=== PATIENT | male | born 1985 | race Caucasian/White ===

== ENCOUNTER 2021-12-17 20:07 | Emergency (ER) | payer BC, SELFPAY ==
[2021-12-17 20:23] VITALS: BP 135/78; PULSE 81; RESP 18; TEMP 36.1; O2SAT 98
--- NOTE | 2021-12-17 21:54 | ED.WOUNDLAC ---
HPI - Wound/Laceration General Chief Complaint: Wound/Laceration Stated Complaint: laceration to wrist Time Seen by Provider: 12/17/21 21:25 Source: RN notes reviewed History of Present Illness HPI narrative: Patient presents emergency department from home for laceration. Patient states that just prior to arrival he was pulling wiring out of the ceiling when a piece of metal that held up onto the tile is got jabbed into his right wrist states he had immediate bleeding at that time states he is unsure of his last tetanus shot he denies any numbness or tingling of his extremities states full range of motion of all of his fingers denies any other symptoms Related Data Home Medications Medication Instructions Recorded Confirmed No Home Medications 12/17/21 12/17/21 Allergies Allergy/AdvReac Type Severity Reaction Status Date / Time No Known Allergies Allergy Verified 12/17/21 20:25 Review of Systems Review of Systems: Gen.: Denies fevers or chills Musculoskeletal: Denies hand pain Neuro: Denies numbness, tingling, weakness Skin: See HPI Endo: Denies DM PMFSH Past Medical History Medical History (Updated 12/17/21 @ 21:57 by Homer Dillon DO) Patient denies significant medical history Social History Social History Smoking status: Never smoker Alcohol intake: current Exam Narrative: APPEARANCE: No acute distress, nontoxic, resting in bed Eyes: EOMI HEENT: Normocephalic, atraumatic, RESPIRATORY: No respiratory distress MUSCULOSKELETAl: Right hand with full range of motion of the wrist full flexion-extension of all 5 MCP and IP joints, radial pulse 2+ neurovascular intact NEURO: Awake and alert. Following commands, speech normal, no focal deficits SKIN:: Warm, dry. Normal mild venous bleeding no foreign body no tendon involvement seen 1 cm vertical laceration of the right midline wrist Course Course Emergency Course: Discussed with patient results of workup and diagnosis. Discussed need for follow-up with primary care, proper use of medication, and reasons to return to the emergency department. Patient understands and agrees to current treatment plan Vital Signs Vital signs: Vital Signs Temperature 97.0 F L 12/17/21 20:23 Pulse Rate 81 12/17/21 20:23 Respiratory Rate 18 12/17/21 20:23 Blood Pressure 135/78 12/17/21 20:23 Pulse Oximetry 98 12/17/21 20:23 Temperature 97.0 F L 12/17/21 20:23 Pulse Rate 81 12/17/21 20:23 Respiratory Rate 18 12/17/21 20:23 Blood Pressure 135/78 12/17/21 20:23 Pulse Oximetry 98 12/17/21 20:23 Procedures Laceration Laceration 1: ====== Skin Level ====== ====== Subcutaneous Layer ====== ====== Muscle Layer ====== ====== Tendon Layer ====== Dressin cm wrist laceration: Verbal consent was obtained prior to the procedure. The wound was cleaned with Betadine and irrigated with copious amounts of normal saline. Lidocaine 1% with epinephrine was used for anesthesia. Wound was explored is no foreign body seen. The wound was then closed with 2 3-0 nylon in simple interrupted fashion. A sterile dressing was applied following the procedure. Patient tolerated the procedure well Discharge Plan Discharge Clinical Impression: Laceration of wrist, right Patient Disposition: Home, Self-Care Condition: Stable Instructions: Antibiotic Form, Laceration (ED) Additional Instructions: Return for increasing pain bleeding from the wound signs of infection or any other symptoms or concern. your stitches need to be removed in 7-10 days and you may go to your physician or return to the emergency department for removal. Prescriptions: No Action No Home Medications RF: 0 Follow-up/Referrals: Grace,Yolanda Herrera APRN [Primary Care Provider] - 2 Days Time of Disposition: 21:57
[2021-12-17] MEDS: TETANUS,DIPHTHERIA,AC PERTUSSIS ADULT (0.5 ML) BOOSTRIX IM (22:07)
[2021-12-17 22:34] VITALS: BP 123/85; PULSE 79; RESP 18; O2SAT 96
== END 2021-12-17 22:35 | disposition home or self-care (01) ==
PROVIDERS: Emergency Provider Emergency Medicine; PCP Nurse Practitioner Family
DX: S61.511A Laceration without foreign body of right wrist, initial encounter (principal); Z23 Encounter for immunization; W22.8XXA Striking against or struck by other objects, initial encounter
CPT/HCPCS: 12001; 90471; 90715; 99282

== ENCOUNTER 2024-10-13 07:57 | Outpatient (CLI) | payer OTHER, SELFPAY ==
[2024-10-13 08:34] LABS: Anion Gap 6 mmol/L (4-12); Blood Urea Nitrogen 15 mg/dL (9-20); Calcium 9.3 mg/dL (8.4-10.2); Carbon Dioxide 31 mmol/L (22-30); Chloride 102 mmol/L (98-107); Cholesterol 186 mg/dL (0-200); Estimated Glomerular Filt Rate > 60; Glucose 89 mg/dL (65-110); HDL Direct 49 mg/dL; Potassium 3.7 mmol/L (3.4-5.0); Sodium 139 mmol/L (137-145); Triglycerides 142 mg/dL (<150)
[2024-10-13 08:45] LABS: LDL Cholesterol Direct 98 mg/dL
[2024-10-13 08:50] LABS: Hemoglobin A1C 5.3 % (<5.7)
[2024-10-13 09:05] LABS: Prostate Specific Antigen 0.5 ng/mL (< OR = 4.0)
[2024-10-13 09:42] LABS: Folic Acid > 20.0 ng/mL (2.76->20); Vitamin B12 > 1000.0 pg/mL (239-931)
== END 2024-10-13 07:58 | disposition home or self-care (01) ==
PROVIDERS: PCP Nurse Practitioner Family; Visit Provider Nurse Practitioner Family
DX: R73.09 Other abnormal glucose (principal); E53.8 Deficiency of other specified B group vitamins; Z12.5 Encounter for screening for malignant neoplasm of prostate; Z13.29 Encounter for screening for other suspected endocrine disorder; Z13.1 Encounter for screening for diabetes mellitus
CPT/HCPCS: 36415; 80048; 80061; 82607; 82746; 83036; 84153; 84443

== ENCOUNTER 2025-10-22 10:41 | Outpatient (CLI) | payer BC, SELFPAY ==
[2025-10-22 11:16] LABS: Hematocrit 44.4 % (42.0-52.0); Hemoglobin 15.2 g/dL (14.0-18.0); Immature Granulocyte Percent A 0.3 % (0-0.5); Lymphocytes Absolute Auto 2.03 K/mm3 (0.9-3.2); Mean Corpuscular HGB Conc 34.2 g/dl (32-36); Mean Corpuscular Hemoglobin 31.7 pg (26-34); Mean Corpuscular Volume 92.7 fl (80-100); Nucleated Red Blood Cells Absolute Auto 0.000 K/mm3 (0.0-0.012); Nucleated Red Blood Cells Perc 0.0 % (0.0-0.2); Platelet Count Result 190 k/mm3 (150-375); Red Blood Count 4.79 M/mm3 (4.6-6.20); White Blood Count 6.6 K/mm3 (4.5-10.0)
[2025-10-22 11:39] LABS: Alanine Aminotransferase 19 U/L (6-50); Albumin Level 4.3 g/dL (3.5-5.1); Alkaline Phosphatase 56 U/L (38-126); Anion Gap 3 mmol/L (4-12); Aspartate Amino Transferase 34 U/L (17-59); Bilirubin,Total 1.1 mg/dL (0.2-1.3); Blood Urea Nitrogen 15 mg/dL (9-20); Calcium 10.0 mg/dL (8.4-10.2); Carbon Dioxide 32 mmol/L (22-30); Chloride 103 mmol/L (98-107); Cholesterol 234 mg/dL (0-200); Estimated Glomerular Filt Rate > 60; Glucose 90 mg/dL (65-110); HDL Direct 69 mg/dL; Magnesium 2.0 mg/dL (1.6-2.3); Potassium 4.3 mmol/L (3.4-5.0); Sodium 138 mmol/L (137-145); Total Protein 7.6 g/dL (6.3-8.2); Triglycerides 120 mg/dL (<150)
[2025-10-22 12:18] LABS: Hemoglobin A1C 5.2 % (<5.7)
[2025-10-22 12:49] LABS: Vitamin B12 851.0 pg/mL (239-931)
[2025-10-26 07:08] LABS: Vit. B1, Whole Blood 125.1 nmol/L (66.5-200.0)
== END 2025-10-22 10:42 | disposition home or self-care (01) ==
LOC: ANHLAB 10:45
PROVIDERS: PCP Family Medicine; Visit Provider Surgery
DX: Z13.21 Encounter for screening for nutritional disorder (principal); K91.2 Postsurgical malabsorption, not elsewhere classified; Z98.84 Bariatric surgery status
CPT/HCPCS: 36415; 80053; 80061; 82607; 82746; 83036; 83735; 84425; 85025